=== PATIENT | male | born 1955 | race Caucasian/White ===

== ENCOUNTER → 2021-12-07 | Day surgery (SDC) | payer MEDICARE ==
[2021-12-02 14:28] VITALS: BP 123/90
[2021-12-02 15:45] LABS: BASOPHIL % 0.4 % (0.0-0.2); EOSINOPHIL # 0.3 10^3/uL (0.0-0.2); EOSINOPHIL % 3.8 % (0.0-5.0); LYMPHOCYTES # 2.16 10^3/uL1 (1.0-4.8); LYMPHOCYTES % 27.2 % (24.0-44.0); MEAN CORP HGB 30.5 pg (26-34); MONOCYTES # 0.7 10^3/uL (0.3-0.8); MONOCYTES % 9.1 % (5.0-12.0); NEUTROPHIL # 4.7 10^3/uL (1.8-7.7); NEUTROPHILS % 59.4 % (41.0-85.0); PLATELET COUNT 207 10^3/uL (150-400); RED CELL DISTRIBUTION WIDTH 12.7 % (11.5-14.5)
[2021-12-02 16:28] LABS: CARBON DIOXIDE 29.8 mmol/L (20.0-32)
--- NOTE | 2021-12-03 07:41 | PCM.EKG ---
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
[~2021-12-07] VITALS: Ht 177.8 cm; Wt 99.8 kg
[2021-12-07] VITALS (10 sets, daily range): BP systolic 99–152; BP diastolic 59–94
[~2021-12-07] MED LIST: DECADRON ONE; DIPRIVAN IV ONE; LACTATED RINGERS 1,000 ML IV SCH; LACTATED RINGERS 1,000 ML ONE; LEVAQUIN 100 ML IV ONE; NS 1000ML 1,000 ML ONE; NS 3000ML IRR IR ONE; SODIUM CHLORIDE IRR BOTTLE IR ONE; SUBLIMAZE ONE; TORADOL ONE; XYLOCAINE 2% 5ML VIAL ONE; ZOFRAN ONE
--- NOTE | 2021-12-07 12:42 | OPH ---
DATE OF SURGERY: 12/07/2021 DICTATOR NAME: Osvaldo Saucedo MD PREOPERATIVE DIAGNOSES: Possible bladder diverticulum with prostatic hyperplasia. FINAL DIAGNOSIS: Occlusive prostatic hyperplasia. No evidence of bladder diverticulum. DESCRIPTION OF PROCEDURE: The patient was brought to the cystoscopy room, was put in supine position on the cystoscopy table. After the patient was given a satisfactory and adequate LMA general anesthesia, the patient was placed in the lithotomy position. First, the patient was then prepped and draped aseptically in the usual manner. First, a 12-Austrian red rubber catheter was inserted per urethra up to the bladder and then the bladder was filled up with an Omnipaque dye for cystogram. Cystogram revealed no evidence of bladder diverticulum. After this, the catheter was removed and bladder was emptied and there was no residual dye in the bladder. Then, a ____-Austrian cystoscope was inserted per urethra with the use of the foroblique lens, the posterior urethra was visualized. There is a large obstructive prostatic hyperplasia, especially at the right lateral lobe. After that, the right angle lens was then used to visualize the bladder and there was no evidence of bladder diverticulum noted. No tumor, no calculi, no ulcerations seen. The bladder was then emptied and instrument was removed. Urethral dilatation was then performed. Procedure was terminated. The patient was awakened, was transferred to the recovery room in stable condition. Osvaldo Saucedo MD DR: ARCENIO/KIA/JOHNNY/DONNELL TID: [id number] RECEIPT: [id number]
--- NOTE | 2021-12-09 15:15 | DIREP ---
PROCEDURE: XRAY CYSTOGRAM 3VWS COMPARISON: None. INDICATIONS: CHECK IF HERN[employer] W BLADDER,100CC OMNI 350,9 FILMS 45.13mGy, 99.1 SEC TECHNIQUE: Intraoperative fluoroscopy. FINDINGS: 9 spot fluoroscopic images were submitted. Total fluoroscopy time was not provided. CONCLUSION: Intraoperative fluoroscopy to assist the surgeon. Please see operative report for full details. Dictated by: Parrish De León M.D. on 12/07/2021 at 10:04 PM P MTDD
== END | disposition home or self-care (01) ==
LOC: SDC 06:28
PROVIDERS: ATTEND Urology
DX: N32.3 Diverticulum of bladder (principal); N40.0 Benign prostatic hyperplasia without lower urinary tract symptoms; K40.90 Unilateral inguinal hernia, without obstruction or gangrene, not specified as recurrent; K21.9 Gastro-esophageal reflux disease without esophagitis; Z79.899 Other long term (current) drug therapy; Z98.890 Other specified postprocedural states; Z79.01 Long term (current) use of anticoagulants
CPT/HCPCS: 85025; 36415; 80048; 84153; 85610; 85730; 93005; 52281; 74430; J7030; J7120 ×2; A4217 ×2; J1100; J3490; J2001; J2405; J1885; J3010; Q9965; 76000